=== PATIENT | male | born 1960 | race Caucasian/White ===

== ENCOUNTER → 2024-05-09 15:50 | Outpatient (REF) | payer BC, SELFPAY | LOC: RCS 15:50 | PROVIDERS: ATTENDING PHYSICIAN Internal Medicine Interventional Cardiology; FAMILY PHYSICIAN Family Medicine | DX: I10 Essential (primary) hypertension (principal) | CPT/HCPCS: 93306 ==

== ENCOUNTER → 2025-03-07 14:04 | Outpatient (REF) | payer MEDICARE, SELFPAY | LOC: HWRAD 14:04 | PROVIDERS: ATTENDING PHYSICIAN Internal Medicine Critical Care Medicine; FAMILY PHYSICIAN Family Medicine | DX: Z87.891 Personal history of nicotine dependence (principal) | CPT/HCPCS: 71271 ==

== ENCOUNTER → 2025-03-09 11:54 | Outpatient (REF) | payer MEDICARE, SELFPAY | LOC: DHSLP 11:54 | PROVIDERS: ATTENDING PHYSICIAN Internal Medicine Critical Care Medicine; FAMILY PHYSICIAN Family Medicine | DX: G47.30 Sleep apnea, unspecified (principal); R06.83 Snoring | CPT/HCPCS: 95800 ==

== ENCOUNTER → 2025-04-20 15:40 | Outpatient (REF) | payer MEDICARE, SELFPAY | LOC: DHSLP 15:40 | PROVIDERS: ATTENDING PHYSICIAN Internal Medicine Critical Care Medicine; FAMILY PHYSICIAN Family Medicine | DX: G47.33 Obstructive sleep apnea (adult) (pediatric) (principal); R06.83 Snoring | CPT/HCPCS: 95810 ==

== ENCOUNTER 2025-05-14 15:47 | Emergency (ER) | payer MEDICARE, SELFPAY ==
[2025-05-14 15:55] VITALS: BP 128/66
[2025-05-14 16:00] LABS: Glucose - Point of Care 117 mg/dl (70-99)
--- NOTE | 2025-05-14 17:31 | ED.GENMED ---
History of Present Illness
General
Chief Complaint: Blood Sugar Problem
Time Seen by Provider: 05/14/25 17:01
History of Present Illness
History of Present Illness:
Patient is a 65-year-old male with a history of bsy-[id number] diabetes who presents with hypoglycemia now resolved. Notes eating his usual diet today without any other symptoms. He states around lunchtime his blood sugar starts to drop and
went as low as 53. States he ate some M&Ms and grilled cheese and it is now up into the 70s. He reports that his A1c was previously around 8 however 3 weeks ago it was 7.2 and his primary doctor increased his Jardiance from 10 mg to 25 mg.
Otherwise no change in medication or diet
Phy Exam
Physical Exam
Physical Exam:
GENERAL APPEARANCE: NAD, well developed/ well nourished
EYES lids/conjunctiva normal
EARS/NOSE/THROAT Mucous membranes moist, uvula midline without oral pharyngeal erythema, exudate or swelling
HEAD/NECK normocephalic atraumatic, neck is supple.
RESPIRATORY respiratory effort normal, speaks in full sentences, no accessory muscle use. Lungs clear to auscultation without rhonchi, wheezes, rales
CARDIAC Regular rate and rhythm, no edema.
ABDOMINAL Soft, ND/NT.
MUSCLES/EXTREMITIES No abnormal range of motion, no swelling.
SKIN Warm, pink and dry. No rashes
NEUROLOGICAL Speech is clear and appropriate. Normal level of consciousness. 5/5 strength in all extremities.
PSYCH Normal mood and affect. Judgement/competence is appropriate
Course
Orders/Labs/Results
Orders:
Orders
05/14/25 17:43
Complete Blood Count/With Diff Urgent
Comprehensive Metabolic Panel Urgent
Abnormal Lab Results
05/14/25 05/14/25 05/14/25
15:57 17:43 18:36
RBC 4.50 L 10^6/uL
(4.70-6.10)
Hgb 12.9 L g/dL
(13.0-18.0)
MCHC 32.9 L g/dL
(33.0-37.0)
MPV 10.8 H fL
(7.4-10.4)
Absolute Lymphs (auto) 1.1 L 10^3/uL
(1.2-3.4)
Absolute Monos (auto) 1.0 H 10^3/uL
(0.1-0.6)
Lymphocytes % 14.2 L %
(20.5-51.1)
Monocytes % 13.3 H %
(1.7-9.3)
Glucose 136 H mg/dl
(70-99)
POC Glucose 117 H mg/dl 116 H mg/dl
(70-99) (70-99)
05/14/25 17:43
05/14/25 17:43
Vital Signs
Initial and Last Documented VS:
Initial Vital Signs
Temp Pulse Resp BP Pulse Ox
98.5 F 74 16 128/66 97
05/14/25 15:55 05/14/25 15:55 05/14/25 15:55 05/14/25 15:55 05/14/25 15:55
Last Documented Vital Signs
Temp Pulse Resp BP Pulse Ox
98.5 F 74 16 128/66 97
05/14/25 15:55 05/14/25 15:55 05/14/25 15:55 05/14/25 15:55 05/14/25 17:33
*Pulse Oximetry
SaO2: 97
Oxygen Mode of Delivery: Room air
Patient hypoxic: no
*Critical Care Note
Total Time (30-74mins, 75-104mins- exclusive of procedures): Not Applicable
ED Attending Note
ED Attending Note
ED Attending Note:
Patient well-appearing without any symptoms and normal blood sugar at this time. Will check basic labs. Possibly in the setting of increased oral medications for his diabetes. If labs are within normal limits and patient continues to be
euglycemic, will discharge with instruction to drop back down to his 10 mg dose of Jardiance and follow-up with his primary doctor.
-
Portions of this chart may have been created with voice recognition software.� Occasional wrong word or��sound alike� substitutions may have occurred due to the inherent limitations of voice recognition software.
Discharge Plan
Departure
Patient Disposition: Home (Routine Discharge)
Date of Disposition: 05/14/25
Time of Disposition: 18:50
Patient with high blood pressure during this ER visit?: No
Discharge Problem:
Hypoglycemia
Instructions: Low Blood Sugar, Adult (DC)
Referrals:
UNKNOWN - PT DOES,NOT KNOW [Family Provider]
Activity Restrictions/Additional Instructions:
Please decrease your Jardiance dose back down to 10mg. Follow up closely with your primary doctor.
Interventions
Interventions:
*Risk Screen - Suicide Last Done: 05/14/25 18:00
*General Assessment Last Done: 05/14/25 18:00
*Neglect/Abuse Screening Last Done: 05/14/25 18:00
*ED- Fall Risk Assessment Last Done: 05/14/25 18:00
*ED COVID-19 Vaccine History Last Done: 05/14/25 19:17
*Nursing Disposition Last Done: 05/14/25 18:55
ED- Neurological Assessment Last Done: 05/14/25 18:00
Discharge Date and Time
Discharge Date/Time: 05/14/25 18:55
Print Language: BELARUSIAN
[2025-05-14 17:52] LABS: Hematocrit 39.2 % (39.0-52.0); Hemoglobin 12.9 g/dL (13.0-18.0); Mean Corp Hgb Conc. 32.9 g/dL (33.0-37.0); Mean Corpuscular Volume 87.1 fL (80.0-94.0); Nucleated Red Blood Cells % 0 % (-); Platelet Count 149 10^3/uL (130-400); Red Cell Dist. Width 14.2 % (11.5-14.5)
[2025-05-14 18:20] LABS: ALT (SGPT) 22 U/L (0-50); AST (SGOT) 19 U/L (17-59); Albumin 4.3 g/dl (3.5-5.0); Alkaline Phosphatase 73 U/L (38-126); Blood Urea Nitrogen 18 mg/dl (9-20); Calcium 9.7 mg/dl (8.4-10.2); Carbon Dioxide 26 mmol/L (22-30); Chloride 101 mmol/L (98-107); Glucose 136 mg/dl (70-99); Potassium 3.7 mmol/L (3.5-5.1); Sodium 137 mmol/L (135-145); Total Protein 6.8 g/dl (6.3-8.2); eGFR > 60.00
[2025-05-14 18:43] LABS: Glucose - Point of Care 116 mg/dl (70-99)
== END 2025-05-14 18:55 | disposition home or self-care (01) ==
LOC: EMR 15:47
PROVIDERS: EMERGENCY PHYSICIAN Emergency Medicine
DX: E11.649 Type 2 diabetes mellitus with hypoglycemia without coma (principal); Z79.84 Long term (current) use of oral hypoglycemic drugs
CPT/HCPCS: 99283; 80053; 82962; 85025